=== PATIENT | female | born 1985 | race Caucasian/White ===

== ENCOUNTER 2016-08-28 00:10 | Emergency (ER) | payer OTHER ==
[2016-08-28] MEDS ORDERED: ACETAMINOPHEN 325 MG TABLET ONE (02:29)
[2016-08-28] MEDS ORDERED: OXYCODONE HCL 5 MG TABLET ONE (02:29)
--- NOTE | 2016-08-28 07:36 | US ---
Exam: Right lower extremity venous ultrasound COMPARISON: None INDICATION: Pain in groin for 2 weeks with swelling for one and a half weeks. FINDINGS: The deep venous system of the right lower extremity was evaluated with color flow, compression, augmentation and spectral analysis. The deep venous system of the right lower extremity from the popliteal vein up to the common femoral vein is patent without evidence of DVT. Proximal calf veins appear patent as well but were only evaluated with augmentation and Doppler analysis. IMPRESSION: No evidence of DVT in the right lower extremity. Preliminary report transmitted to the emergency department from [facility] at 0355 hours 08/28/2016.
--- NOTE | 2016-08-28 07:37 | RAD ---
Exam: Two-view right lower leg COMPARISON: None INDICATION: One half weeks of right lower extremity pain, redness and swelling that started in the groin but traveled to the rest of the leg. FINDINGS: AP and lateral views of the right lower leg including the tibia and fibula were obtained. No apparent soft tissue swelling. Overall normal bone mineralization. There is normal alignment. No fracture or periosteal reaction is seen. IMPRESSION: Negative two-view right lower leg.
== END 2016-08-28 04:17 | disposition home or self-care (01) ==
LOC: ED 00:10
DX: M79.604 Pain in right leg (principal); M79.89 Other specified soft tissue disorders; F17.290 Nicotine dependence, other tobacco product, uncomplicated; Z92.0 Personal history of contraception
CPT/HCPCS: 73590; 99284; 93971; 99283; A9270 ×2